=== PATIENT | male | born 1940 | race Caucasian/White ===

== ENCOUNTER 2022-02-21 12:07 | Outpatient (REF) | payer BC, SELFPAY ==
--- NOTE | ~2022-02-21 | XR_ITS ---
EXAMINATION: XR HIP, RIGHT CLINICAL INFORMATION: Pain. COMPARISON: Radiographs dated 01/02/2017. TECHNIQUE: AP and frog-leg lateral views of the right hip. FINDINGS: Bony mineralization is normal. There is increased, moderately severe narrowing of the right acetabular joint space. The right acetabular roof shows subchondral sclerosis, mild lateral articular surface irregularity and a minimal peripheral osteophyte. The right femoral head appears smooth. No fracture or dislocation is seen. There are pelvic phleboliths. No foreign body is seen. XR/XR hip RT min 2V IMPRESSION: There is moderately severe osteoarthritic change of the right hip, increased from prior. No fracture or dislocation is seen.
== END 2022-02-21 12:08 | disposition home or self-care (01) ==
LOC: HO.XRAY 12:07
PROVIDERS: PCP Internal Medicine; Visit Provider Internal Medicine
DX: M25.551 Pain in right hip (principal)
CPT/HCPCS: 73502

== ENCOUNTER 2025-02-14 00:59 | Emergency (ER) | payer MEDICARE, SELFPAY ==
[2025-02-14] VITALS (8 sets, daily range): BP systolic 100–149; BP diastolic 25–51; PULSE 53–79; RESP 10–18; TEMP 36.1–36.5; O2SAT 95–100; BMI 23.5
--- NOTE | 2025-02-14 01:08 | ED.GENADULT ---
HPI - General Adult General Chief complaint: Urogenital-Male Stated complaint: recent bladder surgery HTN n/v tachy Time Seen by Provider: 02/14/25 01:02 Source: patient and EMS Mode of arrival: EMS Limitations: no limitations History of Present Illness ED Provider: Dr. Shanta Hampton HPI narrative: Patient comes to the emergency room complaining of nausea vomiting and feeling a bit lightheaded after patient rinsed his bladder. Patient states that about 3 weeks ago at [facility], patient had TURP procedure. Patient states that he has been having hematuria since then. Patient states that couple of days ago , at their office, they did a manual bladder irrigation. Then patient was sent home. Patient called his providers to let him know that he has still had blood in the urine, he was told that this is expected. Patient states that today he went to rinse his bladder through his Ramirez catheter. Patient states that the 1st time it worked well, the 2nd time, it did not flush well, patient states that he started feeling lightheaded, diaphoretic, vomited couple of times and called 911. Patient denies any chest pain or shortness of breath. Patient states that this time he feels better. Related Data Home Medications ?Medication ?Instructions ?Recorded ?Confirmed acetaminophen 650 mg 650 mg PO Q12H 02/21/22 03/07/22 tablet,extended release acetylcysteine 600 mg capsule 600 mg PO BID 02/21/22 03/07/22 dextroamphetamine-amphetamine ER 1 cap PO QAM 02/21/22 03/07/22 25 mg 24hr capsule,extend release duloxetine 30 mg capsule,delayed 30 mg PO QAM 02/21/22 03/07/22 release ibuprofen 200 mg capsule 200 mg PO ONCE PRN 02/21/22 03/07/22 levomefolate calcium 15 mg tablet 15 mg PO DAILY 02/21/22 03/07/22 lidocaine HCl 4 % topical cream 1 appl topical BID 02/21/22 03/07/22 (Aspercreme (lidocaine HCl)) lisinopril 10 mg tablet 10 mg PO DAILY 02/21/22 03/07/22 tamsulosin 0.4 mg capsule 0.4 mg PO DAILY 02/21/22 03/07/22 Allergies Allergy/AdvReac Type Severity Reaction Status Date / Time No Known Allergies Allergy Verified 03/07/22 15:14 Mangoes Allergy Unknown anaphylaxis Uncoded 02/14/25 01:14 Review of Systems Review of Systems: Constitutional : No Weight loss, No Fever, No Chills, No Night Sweats, No Fatigue, No Malaise ENT/Mouth : No Hearing loss, No Ear Pain, No Nasal Congestion, No Sinus Pain, No Hoarseness, No sore throat, No Rhinorrhea, No Swallowing Difficulty Eyes: No Eye Pain, No Swelling, No Redness, No Foreign Body, No Discharge, No Vision Changes Cardiovascular : No Chest Pain, No SOB, No Dyspnea on Exertion, No Orthopnea, No Edema, No Palpitations Respiratory : No Cough, No Sputum, No Wheezing, No Smoke Exposure, No Dyspnea Gastrointestinal : Complaining of nausea and vomiting, No Diarrhea, No Constipation, No abdominal Pain, No Hematochezia, No Melena Genitourinary : Recent history of TURP, complaining of hematuria, no dysuria, patient has a Ramirez catheter Musculoskeletal : No joint pain, No Myalgias, No Joint Swelling Skin : No Skin Lesions, No rash Neuro : No Weakness, No Numbness, No Paresthesias, No Loss of Consciousness, No Dizziness, No Headache Psych : No Anxiety/Panic, No Depression, No SI/HI/AH/VH, No Social Issues, Heme/Lymph: No Bruising, No Bleeding,No Lymphadenopathy Endocrine : No Polyuria, No Polydipsia, No Temperature Intolerance [facility] Past Medical History Medical History (Updated 02/14/25 @ 09:09 by Shanta Hampton MD) Hypertension Hypertrophy of prostate ADHD Depression Surgical History (Updated 02/14/25 @ 01:12 by Shanta Hampton MD) S/P TURP Social History Social History Smoked in Last 30 Days: No Use of substances other than those prescribed or required for medical reasons: No Advance Directives: No Advance Directives Information Provided: Yes Do you have a plan to hurt others: No Plan Physical Exam ED Exam Exam: Appearance: Alert. Oriented X3. No acute distress. Eyes: Pupils equal, round and reactive to light. ENT: Pharynx normal. Neck: Normal inspection. Neck supple. No lymph nodes noted. No crepitus CVS: Normal heart rate and rhythm. Pulses normal. Normal S1 and S2 Respiratory: No respiratory distress. Breath sounds normal. No Wheezing. No rales Abdomen: Soft and nontender. No rigidity. No distention. : Patient has Ramirez catheter is in place, there is hematuria in the bag Skin: Skin warm and dry. Normal skin color. Normal skin turgor. Extremities: No lower extremity edema. No Lacerations. No Rash Neuro: Oriented X 3. No motor deficit. No sensory deficit. Moving all extremities. No slurred speech. CN 2 through 12 grossly intact Psych: calm, cooperative, normal affect Vital Signs: Vital Signs - 24 hr 02/14/25 01:08 02/14/25 04:19 02/14/25 06:36 Temperature 97.3 F 97.4 F 97.5 F Pulse Rate 53 79 60 Respiratory Rate 16 16 13 Blood Pressure 102/35 L 105/43 L 120/47 L Pulse Oximetry 100 96 95 Oxygen Delivery Method Room Air Room Air Room Air 02/14/25 08:02 Temperature 97.7 F Pulse Rate 54 Respiratory Rate 13 Blood Pressure 119/31 L Pulse Oximetry 97 Oxygen Delivery Method Room Air BMI result Body Mass Index 23.5 Course Course Course Narrative: We will obtain labs and EKG At this time, patient states that he is not in any pain, denies chest pain or shortness of breath. Overall feeling a bit better. Patient receiving IV fluids and Zofran Patient's bladder was manually irrigated with 2 L of normal saline. However, patient is output is still very bloody. We will proceed with continuous bladder irrigation. We will repeat a CBC just to make sure that the hemoglobin is not dropping too much. Patient no longer vomiting or nauseous, patient states that he feels well. He states that he is very frustrated with the amount of blood, his procedure was 3 weeks ago Medications Administered Discontinued Medications Generic Name Dose Route Start Last Admin Trade Name Donaldq PRN Reason Stop Dose Admin Ceftriaxone Sodium 1 gm 02/14/25 05:36 02/14/25 06:11 Ceftriaxone Sodium 1 Gm Vial IVPUSH 02/14/25 05:37 1 gm ONCE ONE Administration Sodium Chloride 1,000 mls @ 999 mls/hr 02/14/25 01:06 02/14/25 03:26 Ns IVCONT 02/14/25 02:06 Infused .Q1H1M ONE Infusion Ondansetron HCl 4 mg 02/14/25 01:06 02/14/25 01:26 Ondansetron Hcl 4 Mg/2 Ml Vial IVPUSH 02/14/25 01:07 4 mg ONCE ONE Administration Medical Decision Making Medical Decision Making [facility] Narrative: My interpretation of labs: Normal white blood cell count, no significant abnormality in patient's chemistry, urinalysis positive for UTI Patient received IV ceftriaxone for the UTI. I attempted my Shanta rinsing the patient's bladder with 2 L of normal saline. The amount of blood has not significantly decreased. We will attempt a CVA. I discussed with the patient that if the hematuria does not resolve with the CVA, he may have to be admitted. Patient agrees with plan. After 2 L of normal saline, we attempted CBI. However, it kept getting clotted. An additional 2 L were use, 4 L total, patient is still has a large amount of hematuria and blood clots. I discussed the patient with Dr. Hector james from the urology team at [facility], recommendations, speak to the urology team at [facility]. I spoke to the PA on-call, who spoke to Dr. Conrad, who recommends transferring the patient to [facility] I spoke to the medicine team at [facility], the patient was accepted under Dr. De Oliveira. We are waiting for a bed assignment. Dr. Ray from Urology here at [facility] saw the patient, attempted bladder irrigation. Seems that the 3 way Ramirez catheter intake is clogged. Recommendations: Switch the 3 way catheter and attempt again bladder irrigation. Bed assignment still pending. Sign-out given to my colleague Dr. Dee Differential Diagnosis Differential Diagnoses: The differential diagnosis associated with the presentation includes (Post open bleeding, UTI) Admission/Observation Consideration of admission/observation: Escalation of care including admission/observation considered Consult Healthcare Provider Management of the patient was discussed with: Associate Programmer Lab Data [facility] Lab Attestation statement: I reviewed the patient's lab results. 02/14/25 04:49 02/14/25 01:30 Labs: Lab Results 02/14/25 02/14/25 Range/Units 01:30 04:49 WBC 7.0 9.4 (4.8-10.8) X10*3/uL RBC 2.84 L 2.75 L (4.60-5.80) X10*6/uL Hgb 9.2 L 8.8 L (14.0-18.0) g/dl Hct 26.6 L 25.5 L (42.0-52.0) % MCV 93.7 92.7 (80.0-98.0) fL MCH 32.4 32.0 (27.0-33.0) pg MCHC 34.6 34.5 (31.0-36.0) g/dl RDW 13.6 13.7 (11.0-16.0) % Plt Count 226 214 (160-400) X10*3/uL MPV 9.5 9.5 (9.4-12.4) fL Immature Gran % (Auto) 1.0 H 0.7 H (0.0-0.4) % Neut % (Auto) 80.2 H 88.8 H (45-73) % Lymph % (Auto) 10.9 L 6.2 L (20-40) % [place] % (Auto) 6.0 3.9 (2-11) % Eos % (Auto) 1.6 0.2 (0-4) % Baso % (Auto) 0.3 0.2 (0-2) % Lymph # (Auto) 0.8 L 0.6 L (1.2-4.9) X10*3/uL [place] # (Auto) 0.4 0.4 (0.1-1.2) X10*3/uL Eos # (Auto) 0.1 0.0 (0.0-0.4) X10*3/uL Baso # (Auto) 0.0 0.0 (0.0-0.2) X10*3/uL Abs Immat Gran (auto) 0.07 H 0.07 H (0.00-0.03) X10*3/uL Absolute Neuts (auto) 5.6 8.4 H (2.0-8.3) x10*3/uL Absolute Nucleated RBC 0.000 0.000 (0.0-0.012) X10*3/uL Nucleated RBC % (auto) 0.0 0.0 (0.0-0.2) /100WBC Sodium 139 (135-145) mmol/L Potassium 3.8 (3.3-5.1) mmol/L Chloride 111 H (96-108) mmol/L Carbon Dioxide 20 L (22-29) mmol/L Anion Gap 12 (12-20) BUN 13 (9-16) mg/dL Creatinine 1.02 (0.5-1.4) mg/dL Estim Creat Clear Calc 51.3 Estimated GFR > 60 Random Glucose 123 H (60-115) mg/dL Calcium 7.9 L (8.4-10.2) mg/dL Total Bilirubin 0.2 (0.0-1.0) mg/dL Direct Bilirubin < 0.2 (0.0-0.5) mg/dL AST 15 (5-37) U/L ALT 8 (0-40) U/L Alkaline Phosphatase 55 (39-117) U/L Total Protein 5.0 L (6.5-8.0) g/dL Albumin 3.1 L (3.5-5.0) g/dL Urine Color RED Urine Appearance Cloudy Urine pH 7.5 (5.0-9.0) Ur Specific [place] 1.015 (1.005-1.025) Urine Protein 300 (3+) H (Neg-Trace) mg/dL Urine Glucose (UA) 100 H (Negative) mg/dL Urine Ketones 15 (Negative) mg/dL Urine Blood Large (3+) H (Negative) Urine Nitrite Positive H (Negative) Ur Leukocyte Esterase Moderate (2+) H (Negative) Urine RBC >20 H (0-2) /HPF Urine WBC 6-10 H (0-5) /HPF Ur Squamous Epith Cells 3-5 (0-2) /HPF Urine Bacteria 1+ (None Seen) Hyaline Casts 0-2 (0-2) /LPF Critical Care Time Critical Care Time Critical Care Time: Yes Total Critical Care Time: 90 Attestation: I have personally provided critical care time. Time includes review of lab data, radiology results, discussion with consultants, and monitoring for potential decompensation. Intervention performed as documented. Discharge Plan Discharge Clinical Impression: Hematuria, Acute UTI Patient Disposition: [facility] Hospital Transfer Details: [facility], Dr. De Oliveira, Dr. Rodgers Prescriptions: No Action tamsulosin 0.4 mg capsule 0.4 mg PO DAILY dextroamphetamine-amphetamine 25 mg capsule,extended release 24hr 1 cap PO QAM duloxetine 30 mg capsule,delayed release(DR/EC) 30 mg PO QAM lisinopril 10 mg tablet 10 mg PO DAILY acetaminophen 650 mg tablet extended release 650 mg PO Q12H lidocaine HCl [Aspercreme (lidocaine HCl)] 4 % cream 1 appl topical BID acetylcysteine 600 mg capsule 600 mg PO BID ibuprofen 200 mg capsule 200 mg PO ONCE PRN levomefolate calcium 15 mg tablet 15 mg PO DAILY Print Language: Kiswahili
[2025-02-14 01:36] LABS: MANUAL DIFF FLAG NO
[2025-02-14 01:46] LABS: Hematocrit 26.6 % (42.0-52.0); Hemoglobin 9.2 g/dl (14.0-18.0); Imm Gran Abs Auto 0.07 X10*3/uL (0.00-0.03); Imm Gran Pct Auto 1.0 % (0.0-0.4); Lymphocytes Absolute Auto 0.8 X10*3/uL (1.2-4.9); Mean Corpuscular HGB Conc 34.6 g/dl (31.0-36.0); Mean Corpuscular Hemoglobin 32.4 pg (27.0-33.0); Mean Corpuscular Volume 93.7 fL (80.0-98.0); NRBC Abs Auto 0.000 X10*3/uL (0.0-0.012); NRBC Pct Auto 0.0 /100WBC (0.0-0.2); Platelet Count 226 X10*3/uL (160-400); Red Blood Count 2.84 X10*6/uL (4.60-5.80); White Blood Count 7.0 X10*3/uL (4.8-10.8)
[2025-02-14 01:54] LABS: Alanine Aminotransferase 8 U/L (0-40); Albumin Level 3.1 g/dL (3.5-5.0); Alkaline Phosphatase 55 U/L (39-117); Anion Gap 12 (12-20); Aspartate Amino Transferase 15 U/L (5-37); Blood Urea Nitrogen 13 mg/dL (9-16); Calcium 7.9 mg/dL (8.4-10.2); Carbon Dioxide 20 mmol/L (22-29); Chloride 111 mmol/L (96-108); Creatinine Clr Calc Pharmacy 51.3; Estimated Glomerular Filt Rate > 60; Potassium 3.8 mmol/L (3.3-5.1); Sodium 139 mmol/L (135-145); Total Protein 5.0 g/dL (6.5-8.0)
[2025-02-14 05:04] LABS: MANUAL DIFF FLAG NO
[2025-02-14 05:06] LABS: Hematocrit 25.5 % (42.0-52.0); Hemoglobin 8.8 g/dl (14.0-18.0); Imm Gran Abs Auto 0.07 X10*3/uL (0.00-0.03); Imm Gran Pct Auto 0.7 % (0.0-0.4); Lymphocytes Absolute Auto 0.6 X10*3/uL (1.2-4.9); Mean Corpuscular HGB Conc 34.5 g/dl (31.0-36.0); Mean Corpuscular Hemoglobin 32.0 pg (27.0-33.0); Mean Corpuscular Volume 92.7 fL (80.0-98.0); NRBC Abs Auto 0.000 X10*3/uL (0.0-0.012); NRBC Pct Auto 0.0 /100WBC (0.0-0.2); Platelet Count 214 X10*3/uL (160-400); Red Blood Count 2.75 X10*6/uL (4.60-5.80); White Blood Count 9.4 X10*3/uL (4.8-10.8)
[2025-02-14 05:21] LABS: Appearance Urine Cloudy; Glucose Urine UA 100 mg/dL (Negative); PH 7.5 (5.0-9.0); Specific Gravity - Urine 1.015 (1.005-1.025); UMIC TRIGGER UACC YES
[2025-02-14 05:29] LABS: UACC Culture Trigger YES
--- NOTE | 2025-02-14 06:17 | PC.NURSE ---
Manual irrigation was done at bedside with Provider. RN assist.
--- NOTE | 2025-02-14 06:51 | PC.NURSE ---
[address]/C inserted, balloon inflated with 10 mL of sterile water, attempted to perform CBI with no success d/t increased number of blood clots. Dr. Hampton at bedside, verbal order received to perform manual irrigation until is able to perform CBI. Patient denies any pain/discomfort. Medicated with Ceftriaxone IV per MD order.
--- NOTE | 2025-02-14 07:27 | PC.NURSE ---
This RN assumed care @ 0700. Denies pain at this time. Patient has CBI setup but no flow at this time. Irrigating bladder manually, small clots noted in run off pink blood tinged fluid return emptying into jackson. Notified Provider Memo. Provider said to give patient a break at this time as she consults urology.
--- NOTE | 2025-02-14 10:48 | PC.NURSE ---
Replaced jackson with new 22FR 35 ml balloon. Trouble advancing catheter, charge nurse able to advance and inflate balloon. CBI running drainging pink tinged blood small clots noted. Patient denies pain. at bed side.
[2025-02-14] MEDS: Dextroamphetamine/Amphetamine XR 10 MG CAP.ER.24H 30 MG PO (11:13)
--- NOTE | 2025-02-14 13:34 | PC.NURSE ---
3 bags of irrigation fluid used. Ramirez remains patent. Urine blue a pink hue but almost clear. No clots noted at this time.
--- NOTE | 2025-02-14 15:25 | PC.NURSE ---
Spoke with Yun Wolf at [facility], gave nurse to nurse report. Patient picked up by [facility] at this time
--- NOTE | 2025-02-14 15:29 | PC.NURSE ---
Notified mitra Back that patient has been transfrred to [facility] [place]
== END 2025-02-14 15:30 | disposition short-term general hospital (02) ==
PROVIDERS: Emergency Provider Emergency Medicine
DX: R31.9 Hematuria, unspecified (principal); N39.0 Urinary tract infection, site not specified; R11.2 Nausea with vomiting, unspecified; I10 Essential (primary) hypertension
CPT/HCPCS: 36415; 80048; 80076; 81001; 85025; 87086; 87088; 87186; 96361; 96374; 96375; 99285; 99291; 99292; J0696; J2405

== ENCOUNTER → 2025-04-18 11:41 | Outpatient (BNVA) | payer MEDICARE, SELFPAY | PROVIDERS: Visit Provider Urology | DX: N40.1 Benign prostatic hyperplasia with lower urinary tract symptoms (principal); R39.12 Poor urinary stream; N13.8 Other obstructive and reflux uropathy | CPT/HCPCS: 99202 ==